=== PATIENT | female | born 1950 | race African-American/Black ===

== ENCOUNTER 2017-01-03 19:18 | Emergency (ER) | payer OTHER ==
[~2017-01-03] VITALS: Ht 170.2 cm; Wt 88.6 kg
[~2017-01-03 19:18] MED LIST: ACYCLOVIR400 MG PO; ASPIR 8181 M1 PO; ATORVASTATIN CA40 MG PO; CLONAZEPAM0.5 MG PO; CLONAZEPAM1 M1 PO; CLONAZEPAM1 MG PO; CRESTOR10 MG PO; EYE DROP LEFT EYE; FLEXERIL10 MG PO; FLUOXETINE HCL10 MG PO; FLUOXETINE HCL20 MG PO; HYDROCHLOROTHIA25 MG PO; K-DUR10 MEQ PO; LASIX80 MG PO; LISINOPRIL20 MG PO; LITE COAT ASPI325 M1 PO; LOPRESSOR100 M1 PO; LOPRESSOR50 MG PO; MOTRIN600 MG PO; MOTRIN800 MG PO; NIFEDIPINE ER30 MG PO; NORCO 5/3251 TABLET PO; OMNIPRED5 ML LEFT EYE; PERCOCET 5/31 TABLET PO; PRED FORTE100 DROP/5 LEFT EYE; PRED MILD5 ML OP; PREDNISONE50 MG PO; PRINIVIL20 MG PO; PROZAC20 MG PO; SIMVASTATIN40 M1 PO; SPIRONOLACT/HC1 EACH PO; TIMOLOL MALEATE5 M1 BOTH EYES; TIMOPTIC-XE GEL5 ML BOTH EYES; TOPROL XL100 MG PO; TOPROL XL6.25 MG PO; ULTRAM50 MG PO; ZESTORETIC,P1 TABLE1 PO; ZESTRIL,PRINIV2.5 MG PO
[2017-01-03 21:24] LABS: MCH 30.6 PG (29.0-34.0); MCHC 32.8 G/DL (30.0-36.0); MCV 93.3 FL (83-99); MEAN PLAT.VOLUME 11.7 uM^3 (9.5-12.4); PLATELET COUNT 198 K/uL (156-360); RBC DIS.WIDTH-CV 12.4 % (11.8-14.6); RBC DIS.WIDTH-SD 42.3 % (39-53); RED BLOOD COUNT 3.86 M/uL (3.80-5.20)
[2017-01-03 21:36] LABS: CHLORIDE 108 mEq/L (99-109); SODIUM 140 mEq/L (136-147)
[2017-01-03 21:39] LABS: GLUCOSE 99 mg/dL (70-99)
[2017-01-03 21:40] LABS: ANION GAP 10 MEQ/L (2-14); TOTAL BILIRUBIN 0.7 mg/dL (0.0-1.0)
[2017-01-03 21:42] LABS: ALKALINE PHOSPHATASE 105 IU/L (3-129); GFR ESTIMATE (CALCULATED) 36 mL/min/
[2017-01-03 21:44] LABS: UREA NITROGEN (BUN) 36 mg/dL (9-23)
[2017-01-03 21:46] LABS: LIPASE 28 U/L (1.0-51.0)
[2017-01-03 22:46] LABS: ADD MIUA? YES; BILIRUBIN NEGATIVE; BLOOD NEGATIVE; COLOR YELLOW ((YELLOW)); GLUCOSE (STRIP) NEGATIVE; KETONES NEGATIVE; LEUKOCYTES NEGATIVE; NITRITE NEGATIVE; PROTEIN (STRIP) 30; SPECIFIC GRAVITY 1.019 (1.000-1.030); UROBILINOGEN 0.2 MG/DL (0.2-1.0)
[2017-01-03 22:51] LABS: BACTERIA RARE /HPF; EPITHELIAL CELLS RARE /HPF; GRANULAR CASTS 0-5 /LPF; MUCUS 2+ /LPF; RED BLOOD CELLS 0-5 /HPF (0-5); UCUL ADDED? NO; WHITE BLOOD CELLS 0-5 /HPF (0-5)
[2017-01-04] MEDS ORDERED: VALTREX50 MG/ML PO (00:30)
[2017-01-04] MEDS ORDERED: FLUOXETINE HCL40 MG PO (00:31)
[2017-01-04] MEDS ORDERED: PREDNISOLONE AC15 ML LEFT EYE (00:31)
[2017-01-04] MEDS ORDERED: ZOFRAN ODT4 MG PO (01:27)
[2017-01-04 01:32] VITALS: BP 144/80
== END 2017-01-04 01:32 | disposition home or self-care (01) ==
LOC: EME 19:18
DX: R10.11 Right upper quadrant pain (principal); I10 Essential (primary) hypertension; E78.5 Hyperlipidemia, unspecified; Z90.710 Acquired absence of both cervix and uterus; H54.42 Blindness, left eye, normal vision right eye
CPT/HCPCS: 74176; 76705; 80053; 81003; 83690; 85027; 99281; 99283

== ENCOUNTER 2017-04-11 11:50 | Emergency (ER) | payer OTHER ==
[~2017-04-11] VITALS: Ht 170.2 cm; Wt 89.2 kg
[~2017-04-11 11:50] MED LIST changes: +FLUOXETINE HCL40 MG PO; +PREDNISOLONE AC15 ML LEFT EYE; +VALTREX50 MG/ML PO; +ZOFRAN ODT4 MG PO
[2017-04-11] MEDS ORDERED: ULTRACET1 TABLET PO (15:51)
[2017-04-11 16:36] VITALS: BP 188/85
== END 2017-04-11 16:37 | disposition home or self-care (01) ==
LOC: EME 11:50
DX: M79.672 Pain in left foot (principal); M79.671 Pain in right foot; M79.89 Other specified soft tissue disorders; E78.5 Hyperlipidemia, unspecified; I10 Essential (primary) hypertension; F41.9 Anxiety disorder, unspecified; Z79.82 Long term (current) use of aspirin
CPT/HCPCS: 73630; 93971; 99281; 99283

== ENCOUNTER 2017-11-01 12:55 | Emergency (ER) | payer OTHER ==
[~2017-11-01] VITALS: Ht 170.2 cm; Wt 87.9 kg
[~2017-11-01 12:55] MED LIST changes: +ULTRACET1 TABLET PO
[2017-11-01 14:50] LABS: BASOPHIL (%) 0.2 % (0-1); EOSINOPHIL (%) 3.1 % (0-5); EOSINOPHIL COUNT 0.4 K/uL (0-0.3); HEMATOCRIT 35.2 % (36.0-46.0); HEMOGLOBIN 11.7 G/DL (11.9-15.5); IMMATURE GRANULOCYTE (%) 0.4 % (0.0-0.7); LYMPHOCYTE (%) 13.3 % (15-42); LYMPHOCYTE COUNT 1.7 K/uL (1.0-2.8); MCH 29.6 PG (29.0-34.0); MCHC 33.2 G/DL (30.0-36.0); MCV 89.1 FL (83-99); MONOCYTE (%) 7.2 % (3-12); MONOCYTE COUNT 0.9 K/uL (0-0.8); NEUTROPHIL (%) 75.8 % (45-76); NEUTROPHIL COUNT 9.8 K/uL (1.8-6.4); PLATELET COUNT 176 K/uL (156-360); RBC DIS.WIDTH-CV 13.7 % (11.8-14.6); RBC DIS.WIDTH-SD 45.1 % (39-53); RED BLOOD COUNT 3.95 M/uL (3.80-5.20); WHITE BLOOD COUNT 12.9 K/uL (4.1-10.2)
[2017-11-01 14:59] LABS: CHLORIDE 108 mEq/L (99-109); POTASSIUM 3.6 mEq/L (3.7-5.4); SODIUM 142 mEq/L (136-147)
[2017-11-01 15:00] LABS: GLUCOSE 96 mg/dL (70-99)
[2017-11-01 15:04] LABS: CREATININE 1.2 mg/dL (0.6-1.3); GFR ESTIMATE (CALCULATED) 58 mL/min/
[2017-11-01 15:05] LABS: UREA NITROGEN (BUN) 18 mg/dL (9-23)
[2017-11-01 16:33] LABS: APPEARANCE CLEAR ((CLEAR)); BILIRUBIN NEGATIVE; BLOOD NEGATIVE; COLOR AMBER ((YELLOW)); GLUCOSE (STRIP) NEGATIVE; KETONES NEGATIVE; LEUKOCYTES NEGATIVE; NITRITE NEGATIVE; PROTEIN (STRIP) 100; SPECIFIC GRAVITY 1.026 (1.000-1.030); UROBILINOGEN 0.2 MG/DL (0.2-1.0)
[2017-11-01 16:37] LABS: BACTERIA RARE /HPF; EPITHELIAL CELLS 2+ /HPF; MUCUS 2+ /LPF; RED BLOOD CELLS 0-5 /HPF (0-5); UCUL ADDED? YES
[2017-11-01] MEDS ORDERED: ZITHROMAX Z-PA250 MG PO (17:04)
[2017-11-01] MEDS ORDERED: ROBITUSSIN AC,T10 ML PO ×2 (17:06→17:25)
[2017-11-01 17:36] VITALS: BP 159/80
== END 2017-11-01 17:36 | disposition home or self-care (01) ==
LOC: EME 12:55
PROVIDERS: Emergency Medicine
DX: J20.9 Acute bronchitis, unspecified (principal); R94.31 Abnormal electrocardiogram [ECG] [EKG]; I10 Essential (primary) hypertension; E78.5 Hyperlipidemia, unspecified; H54.62 Unqualified visual loss, left eye, normal vision right eye; F41.9 Anxiety disorder, unspecified; Z79.82 Long term (current) use of aspirin; Z86.19 Personal history of other infectious and parasitic diseases; Z90.710 Acquired absence of both cervix and uterus
CPT/HCPCS: 71046; 80048; 81003; 85025; 87086; 87502; 93005; 99281; 99284

== ENCOUNTER 2017-11-25 17:46 | Emergency (ER) | payer OTHER ==
[~2017-11-25] VITALS: Ht 170.2 cm; Wt 87.7 kg
[~2017-11-25 17:46] MED LIST changes: +ROBITUSSIN AC,T10 ML PO; +ZITHROMAX Z-PA250 MG PO
[2017-11-25 18:47] LABS: HEMATOCRIT 34.7 % (36.0-46.0); HEMOGLOBIN 11.4 G/DL (11.9-15.5); MCH 29.4 PG (29.0-34.0); MCHC 32.9 G/DL (30.0-36.0); MCV 89.4 FL (83-99); PLATELET COUNT 192 K/uL (156-360); RBC DIS.WIDTH-CV 13.2 % (11.8-14.6); RBC DIS.WIDTH-SD 43.5 % (39-53); RED BLOOD COUNT 3.88 M/uL (3.80-5.20); WHITE BLOOD COUNT 11.7 K/uL (4.1-10.2)
[2017-11-25 18:58] LABS: CHLORIDE 108 mEq/L (99-109); POTASSIUM 3.6 mEq/L (3.7-5.4); SODIUM 141 mEq/L (136-147)
[2017-11-25 19:00] LABS: GLUCOSE 99 mg/dL (70-99)
[2017-11-25 19:03] LABS: GFR ESTIMATE (CALCULATED) > 59 mL/min/
[2017-11-25 19:04] LABS: UREA NITROGEN (BUN) 19 mg/dL (9-23)
[2017-11-25] MEDS ORDERED: ROBITUSSIN AC,T10 ML PO (19:58)
[2017-11-25] MEDS ORDERED: DELTASONE20 M1 PO (19:58)
[2017-11-25 20:10] LABS: TROP-I INTERPRETATION NEGATIVE; TROPONIN-I < 0.01 ng/mL (0.0-0.30)
[2017-11-25 20:31] VITALS: BP 181/94
== END 2017-11-25 20:32 | disposition home or self-care (01) ==
LOC: EME 17:46
DX: J04.0 Acute laryngitis (principal); R94.31 Abnormal electrocardiogram [ECG] [EKG]; I10 Essential (primary) hypertension; E78.5 Hyperlipidemia, unspecified; H54.62 Unqualified visual loss, left eye, normal vision right eye; F41.9 Anxiety disorder, unspecified; Z79.82 Long term (current) use of aspirin; Z79.52 Long term (current) use of systemic steroids; Z86.19 Personal history of other infectious and parasitic diseases; Z90.710 Acquired absence of both cervix and uterus
CPT/HCPCS: 71046; 80048; 84484; 85027; 93005; 99281; 99284; J7512